=== PATIENT | male | born 1965 | race Hispanic/Latino ===

== ENCOUNTER 2016-05-21 13:18 | Emergency (ER) | payer SELFPAY ==
[~2016-05-21] VITALS: Ht 182.9 cm; Wt 137.3 kg
[~2016-05-21 13:18] MED LIST: ADVAIR 250/501 DISK IH; BENTYL10 MG PO; CELEBREX200 MG PO; DELSYM30 MG/5 M1 PO; FLEXERIL10 MG PO; GABAPENTIN600 MG PO; GUAIFENESIN WI120 ML PO; HYCODAN SYRUP480 ML PO; KEFLEX500 MG PO; LIDODERM 5% P1 PATCH TD; LORTAB 5-325 M1 EACH PO; MEDROL DOSEPAK4 MG PO; METHOCARBAMOL750 MG PO; MOTRIN800 MG PO; MUCINEX1200 MG PO; NAPROXEN500 MG PO; NORCO 5-325 TA1 EACH PO; OPANA ER10 MG PO; PREDNISONE20 MG PO; PRILOSEC20 MG PO; ROBITUSSIN AC,T10 ML PO; SKELAXIN800 MG PO; TESSALON PERLE100 MG PO; TIZANIDINE HCL4 M1 PO; VENTOLIN HFA18 GM IH; ZITHROMAX TRI-500 MG PO; ZITHROMAX Z-PA250 MG PO; ZOFRAN4 MG PO
[2016-05-21 14:04] LABS: HEMATOCRIT 47.2 % (38.0-50.0); MCH 29.5 PG (29.0-34.0); MCHC 33.7 G/DL (30.0-36.0); MCV 87.6 FL (86-99); MEAN PLAT.VOLUME 9.9 uM^3 (9.0-12.4); PLATELET COUNT 235 K/uL (156-360); RBC DIS.WIDTH-CV 14.9 % (11.8-14.6); RBC DIS.WIDTH-SD 47.2 % (39-53); RED BLOOD COUNT 5.39 M/uL (4.00-5.50); WHITE BLOOD COUNT 6.8 K/uL (4.1-10.2)
[2016-05-21 14:25] LABS: TROP-I INTERPRETATION NEGATIVE; TROPONIN-I < 0.01 ng/mL (0.0-0.30)
[2016-05-21 14:39] LABS: CHLORIDE 105 mEq/L (99-109); POTASSIUM 4.1 mEq/L (3.7-5.4); SODIUM 138 mEq/L (136-147)
[2016-05-21 14:41] LABS: GLUCOSE 91 mg/dL (70-99)
[2016-05-21 14:43] LABS: ANION GAP 9 MEQ/L (2-14)
[2016-05-21 14:45] LABS: GFR ESTIMATE (CALCULATED) > 59 mL/min/
[2016-05-21 14:46] LABS: UREA NITROGEN (BUN) 22 mg/dL (9-23)
[2016-05-21 16:28] LABS: TROP-I INTERPRETATION NEGATIVE; TROPONIN-I < 0.01 ng/mL (0.0-0.30)
[2016-05-21 18:20] LABS: INFLUENZA A VIRAL ANTIGEN POSITIVE; INFLUENZA B VIRAL ANTIGEN NEGATIVE
[2016-05-21] MEDS ORDERED: HYCODAN SYRUP480 ML PO (18:56)
[2016-05-21] MEDS ORDERED: TAMIFLU75 MG PO (18:56)
[2016-05-21 19:20] VITALS: BP 119/84
== END 2016-05-21 19:20 | disposition home or self-care (01) ==
LOC: EME 13:18
PROVIDERS: Emergency Medicine
DX: J11.1 Influenza due to unidentified influenza virus with other respiratory manifestations (principal); R07.9 Chest pain, unspecified
CPT/HCPCS: 71020; 80048; 84484; 85027; 87502; 93005; 94640; 99281; 99284

== ENCOUNTER 2016-08-04 11:23 | Emergency (ER) | payer SELFPAY ==
[~2016-08-04] VITALS: Ht 182.9 cm; Wt 137.2 kg
[~2016-08-04 11:23] MED LIST changes: +TAMIFLU75 MG PO
[2016-08-04] MEDS ORDERED: ZITHROMAX250 MG PO (14:17)
[2016-08-04] MEDS ORDERED: VENTOLIN HFA18 GM IH (14:17)
[2016-08-04] MEDS ORDERED: PREDNISONE20 MG PO (14:17)
[2016-08-04 14:33] VITALS: BP 137/81
== END 2016-08-04 14:33 | disposition home or self-care (01) ==
LOC: EME 11:23
DX: J18.0 Bronchopneumonia, unspecified organism (principal)
CPT/HCPCS: 71020; 93005; 94640; 99281; 99284; J7512

== ENCOUNTER 2016-08-21 12:04 | Emergency (ER) | payer SELFPAY ==
[~2016-08-21] VITALS: Ht 182.9 cm; Wt 136.9 kg
[~2016-08-21 12:04] MED LIST changes: +ZITHROMAX250 MG PO
[2016-08-21 12:57] LABS: HEMATOCRIT 49.2 % (38.0-50.0); MCHC 32.5 G/DL (30.0-36.0); MCV 89.1 FL (86-99); MEAN PLAT.VOLUME 9.7 uM^3 (9.0-12.4); PLATELET COUNT 273 K/uL (156-360); RBC DIS.WIDTH-CV 14.7 % (11.8-14.6); RBC DIS.WIDTH-SD 48.1 % (39-53); RED BLOOD COUNT 5.52 M/uL (4.00-5.50); WHITE BLOOD COUNT 8.3 K/uL (4.1-10.2)
[2016-08-21 13:10] LABS: CHLORIDE 109 mEq/L (99-109); SODIUM 141 mEq/L (136-147)
[2016-08-21 13:12] LABS: GLUCOSE 96 mg/dL (70-99)
[2016-08-21 13:13] LABS: ANION GAP 11 MEQ/L (2-14)
[2016-08-21 13:16] LABS: GFR ESTIMATE (CALCULATED) > 59 mL/min/
[2016-08-21 13:17] LABS: UREA NITROGEN (BUN) 20 mg/dL (9-23)
[2016-08-21 14:25] LABS: TROP-I INTERPRETATION NEGATIVE; TROPONIN-I < 0.01 ng/mL (0.0-0.30)
[2016-08-21] MEDS ORDERED: TESSALON PERLE100 MG PO (14:33)
[2016-08-21] MEDS ORDERED: PREDNISONE20 MG PO (14:33)
[2016-08-21 14:46] VITALS: BP 122/78
== END 2016-08-21 14:48 | disposition home or self-care (01) ==
LOC: EME 12:04
DX: R05 Cough (principal); R06.2 Wheezing; R06.02 Shortness of breath
CPT/HCPCS: 71020; 80048; 84484; 85027; 85379; 93005; 94640; 99281; 99284; J7512

== ENCOUNTER 2017-07-14 04:32 | Emergency (ER) | payer OTHER ==
[~2017-07-14] VITALS: Ht 182.9 cm; Wt 142.2 kg
[2017-07-14 05:27] LABS: HEMOGLOBIN 15.6 G/DL (12.5-16.6); MCH 30.1 PG (29.0-34.0); MCHC 33.2 G/DL (30.0-36.0); MCV 90.6 FL (86-99); PLATELET COUNT 234 K/uL (156-360); RBC DIS.WIDTH-CV 14.5 % (11.8-14.6); RBC DIS.WIDTH-SD 48.6 % (39-53); RED BLOOD COUNT 5.19 M/uL (4.00-5.50); WHITE BLOOD COUNT 7.7 K/uL (4.1-10.2)
[2017-07-14 05:46] LABS: TROP-I INTERPRETATION NEGATIVE; TROPONIN-I < 0.01 ng/mL (0.0-0.30)
[2017-07-14 06:02] LABS: CHLORIDE 109 mEq/L (99-109); POTASSIUM 4.1 mEq/L (3.7-5.4); SODIUM 141 mEq/L (136-147)
[2017-07-14 06:04] LABS: GLUCOSE 103 mg/dL (70-99)
[2017-07-14 06:08] LABS: CREATININE 1.1 mg/dL (0.6-1.3); GFR ESTIMATE (CALCULATED) > 59 mL/min/ (58.99-99999)
[2017-07-14 06:09] LABS: UREA NITROGEN (BUN) 25 mg/dL (9-23)
[2017-07-14] MEDS ORDERED: PROAIR RESPICL90 MCG IH (11:16)
[2017-07-14] MEDS ORDERED: PROVENTIL HFA6.7 GM IH (13:57)
[2017-07-14] MEDS ORDERED: PREDNISONE50 MG PO (13:57)
[2017-07-14] MEDS ORDERED: ZITHROMAX Z-PA250 MG PO (13:57)
[2017-07-14] MEDS ORDERED: ALBUTEROL2.5 MG/3 M IH (13:57)
[2017-07-14 15:42] VITALS: BP 114/81
== END 2017-07-14 15:53 | disposition home or self-care (01) ==
LOC: EME 04:32
DX: J20.9 Acute bronchitis, unspecified (principal)
CPT/HCPCS: 71046; 80048; 84484; 85027; 93005; 94640; 94640 76; 99202; 99281; 99284; J7512